=== PATIENT | male | born 1975 | race Caucasian/White ===

== ENCOUNTER 2017-06-19 13:59 | Emergency (ER) | payer MEDICAID ==
[~2017-06-19] VITALS: Ht 172.7 cm; Wt 65.0 kg
[~2017-06-19 13:59] MED LIST: LEVE1000 PO; OXCA600T5 PO; PHEN30TA42 PO; PHEN60TA; PHEN60TA PO; SEROQUEL; [UNRECOGNIZED DRUG - OTHER]
[2017-06-19 14:01] VITALS: BP 109/65
[2017-06-19] MEDS ORDERED: LEVETIRACETAM 500MG PREMIX 100 ML IV ONE (14:15)
[2017-06-20] MEDS ORDERED: OLAN10TA3 PO (23:24)
[2017-06-21] MEDS ORDERED: CITA20TA19 PO (00:47)
[2017-06-21] MEDS ORDERED: PHEN97.22 PO (00:50)
[2017-06-21] MEDS ORDERED: MECL-109 PO (00:52)
== END 2017-06-19 14:45 | disposition home or self-care (01) ==
LOC: ER 14:13
DX: R56.9 Unspecified convulsions (principal); Z88.8 Allergy status to other drugs, medicaments and biological substances; Z88.6 Allergy status to analgesic agent; Z88.5 Allergy status to narcotic agent
CPT/HCPCS: 99283

== ENCOUNTER 2017-06-21 04:42 | Emergency (ER) | payer MEDICAID ==
[~2017-06-21] VITALS: Ht 172.7 cm; Wt 72.0 kg
[~2017-06-21 04:42] MED LIST changes: +CITA20TA19 PO; +MECL-109 PO; +OLAN10TA3 PO; +PHEN97.22 PO
[2017-06-21 06:30] VITALS: BP 110/74
== END 2017-06-21 09:02 | disposition left against medical advice (07) ==
LOC: ER 05:05
DX: G40.909 Epilepsy, unspecified, not intractable, without status epilepticus (principal); F17.210 Nicotine dependence, cigarettes, uncomplicated; Z88.6 Allergy status to analgesic agent; Z88.5 Allergy status to narcotic agent
CPT/HCPCS: 99283